=== PATIENT | female | born 1965 | race Caucasian/White ===

== ENCOUNTER 2017-07-18 15:58 | Emergency (ER) | payer MEDICAID ==
[2017-07-18] MEDS: morphine 10 MG INJ IM (16:52)
[2017-07-18] MEDS: ONDANSETRON 4 MG INJ IM (16:52)
[2017-07-18] MEDS: FENTAnyl 50 MCG/ML VIAL IV (18:21)
[2017-07-18] MEDS: ONDANSETRON 4 MG INJ IV (18:56)
[2017-07-18] MEDS: PROPOFOL 200 MG INJ IV ×2 (20:52→20:53)
[2017-07-18] MEDS: KETAMINE 500 MG INJ IV (20:52)
== END 2017-07-18 21:01 | disposition home or self-care (01) ==
LOC: E/R 15:58
DX: S52.501A Unspecified fracture of the lower end of right radius, initial encounter for closed fracture (principal); S52.611A Displaced fracture of right ulna styloid process, initial encounter for closed fracture; W18.39XA Other fall on same level, initial encounter; Y92.009 Unspecified place in unspecified non-institutional (private) residence as the place of occurrence of the external cause; Z85.3 Personal history of malignant neoplasm of breast
CPT/HCPCS: 25565; 73070-52; 73100; 73110-RT; 96372; 96374; 96375; 99285-25

== ENCOUNTER 2018-02-23 14:49 | Emergency (ER) | payer SELFPAY, MEDICAID | END 2018-02-23 17:48 | disposition left against medical advice (07) | LOC: E/R 14:49 | DX: Z53.21 Procedure and treatment not carried out due to patient leaving prior to being seen by health care provider (principal) ==